=== PATIENT | female | born 1955 | race African-American/Black ===

== ENCOUNTER → 2016-04-04 | Outpatient (CLI) | payer BC ==
[~2016-04-04] MED LIST: ATOR-26 PO; BUPRTAB51 PO; LAMO200T PO; LAMO25TA PO; LSN/10125 PO; NRN/300 PO; RISP1TAB68 PO; SERT-234 PO; ZOLP12.5 PO
--- NOTE | 2016-04-04 15:06 | DIAGNOSTIC IMAGING REPORT ---
MRI OF THE LUMBAR SPINE WITHOUT CONTRAST CLINICAL HISTORY: Lumbar spinal stenosis. Lower back pain with bilateral lower extremity pain. COMPARISON STUDY: Lumbar spine MRI October 14, 2015. TECHNIQUE: Utilizing a 1.5 Camilla magnet and dedicated coil, multiplanar, multiecho imaging of the lumbar spine was performed without IV contrast. FINDINGS: For purposes of numbering on this exam, the L5-S1 disc space is assigned to axial image 23 of 25. Alignment of the lumbar spine is anatomic. Vertebral body heights are maintained. There is no marrow replacement. The conus terminates at the lower L1 level. There is a suspected 4 mm T2 hypointense abnormality within the canal at the L2 level. This is unchanged since study of October 16, 2012. Paravertebral soft tissues are unremarkable. L1-2: The central canal and neural foramen are patent. L2-3: The central canal and neural foramen are patent. There is mild facet arthrosis. L3-4: The central canal and neural from are patent. There is moderate facet arthrosis. L4-5: There is moderate to severe facet arthrosis, greater on the right. There is mild disc bulge. There is minimal narrowing of the lateral recesses and neural foramen. L5-S1: There is disc space narrowing with mild disc bulge. There is facet arthrosis. There is minimal narrowing of the central canal and lateral recesses as well as mild narrowing of both neural foramen. IMPRESSION: 1. Moderate multilevel facet arthrosis and moderate degenerative disc disease at L5-S1. No significant central canal stenosis. Minimal narrowing of the central canal at L5-S1. 2. Mild multilevel neural foraminal narrowing. No disc herniation. 3. 4 mm intradural extramedullary abnormality at the L2 level. This is stable since prior exam and is of doubtful significance. This could reflect a tiny meningioma or schwannoma. Electronically signed by: Az Nelson M.D. 04/04/2016 3:04 PM Dictated Date/Time: 04/04/2016 2:47 PM
== END | disposition home or self-care (01) ==
LOC: C.MRI 13:30
PROVIDERS: ATTEND Family Medicine
DX: G89.29 Other chronic pain (principal); M48.06 Spinal stenosis, lumbar region; M76.31 Iliotibial band syndrome, right leg; M51.37 Other intervertebral disc degeneration, lumbosacral region

== ENCOUNTER → 2016-06-05 | Day surgery (SDC) | payer BC ==
[2016-06-04 08:33] VITALS: Ht 162.6 cm; Wt 135.4 kg
[~2016-06-05] VITALS: Ht 162.6 cm; Wt 135.4 kg
[~2016-06-05] MED LIST changes: +IOPAMIDOL INJ 61% 15 ML VIAL ONE; +LIDOCAINE HCL 1% MPF 5 ML VIAL ONE; +SODIUM CHLORIDE 0.9% INJ 10 ML VIAL ONE
--- NOTE | 2016-06-05 14:26 | History & Physical Bridge - [place] ---
H&P Re-Evaluation Bridge Note: I have examined the patient, reviewed the History & Physical and in the interval since the performance of the History & Physical I have noted the following changes of clinical significance: No changes noted
[2016-06-05 14:50] VITALS: TEMP 36.5
--- NOTE | 2016-06-05 14:58 | Discharge Instructions ---
Discharge Instructions Date of Service Jun 05, 2016. Visit Reason for Visit: Lumbar Radiculopathy Discharge Discharge Diagnosis / Problem: leg pain Discharge Goals Goal(s): Decrease discomfort, Improve function Activity Recommendations Activity Limitations: resume your previous activity Anesthesia . Post Anesthesia Instructions: If you have had General Anesthesia or IV Sedation: * Do not drive today. * Resume driving when surgeon permits. * Do not make important decisions or sign legal documents today. * Call surgeon for: 1. Temperature elevations greater than 101 degrees F. 2. Uncontrollable pain. 3. Excessive bleeding. 4. Persistent nausea and vomiting. 5. Medication intolerance (nausea, vomiting or rash). * For nausea and vomiting use only clear liquids such as: tea, soda, bouillon until nausea subsides, then gradually increase diet as tolerated. * If you have any concerns or questions, call your surgeon's office. If physician is unavailable and it is an emergency, call 911 or go to the nearest emergency room. . Diet Recommendations Recommended Home Diet: resume previous diet Procedures Procedures Performed: Lumbar Epidural Steroid Injection Pending Studies Studies pending at discharge: no Medical Emergencies . Who to Call and When: Medical Emergencies: If at any time you feel your situation is an emergency, please call 911 immediately. . Non-Emergent Contact Non-Emergency issues call your: Specialist . . "Provider Documentation" section prepared by Nhan Peterson.
[2016-06-05 15:00] VITALS: BP 132/81; PULSE 84; O2SAT 95
--- NOTE | 2016-06-05 15:50 | OPERATIVE REPORT ---
DATE OF OPERATION: 06/05/2016 PREOPERATIVE DIAGNOSIS: L5-S1 lumbar disk disease with bilateral lower extremity radiculopathies. POSTOPERATIVE DIAGNOSIS: Same. PROCEDURE: Left paramedian L5-S1 epidural steroid injection under fluoroscopic guidance. INDICATIONS: The patient is a 61-year-old -[place] female, who presents today for an epidural steroid injection. She has received them in the past with some good results for extended period of time. She presents today with radicular complaints on both legs that have not responded to conservative measures. PHYSICAL EXAMINATION: GENERAL: Pleasant female seated comfortably, in no apparent distress. MUSCULOSKELETAL: She has tenderness to palpation at the L5-S1 paraspinal area. She has normal lower extremity strength. Negative seated straight leg raises. Intact sensation throughout the lower extremities. CONSENT: Verbal and written consent was obtained from the patient. Risks and benefits were reviewed. Risks include, but are not limited to epidural abscess, epidural hematoma, allergic reaction, and dural puncture. The patient wishes to proceed. DESCRIPTION OF PROCEDURE: The patient was taken back to the special procedures room of [facility]. She was maintained in a prone position. Backside was cleansed with Betadine x3 and a dry sterile dressing was applied. Fluoroscope was used to identify the L5-S1 intralaminar space. Overlying skin on the left side was anesthetized with 4 mL of lidocaine 1% with a 25-gauge 1.5-inch needle. A 20-gauge 6-inch Tuohy needle was then directed down towards the intralaminar space. It was advanced under lateral fluoroscopic guidance and loss of resistance was noted at a depth of 13 cm. Isovue-300 contrast 1 mL was injected, which demonstrated epidural uptake pattern, which was confirmed with both AP and lateral views. She then underwent injection after negative aspiration of 4 mL of preservative free sodium chloride and 40 mg of Depo-Medrol. Injection was well tolerated. She did develop some nausea immediately following the injection. DISPOSITION: 1. The patient is taken out into the discharge recovery area, where she will be discharged home once discharge criteria have been met. 2. Follow up in the [facility] office in 2-4 weeks. I attest to the content of the Intraoperative Record and any orders documented therein. Any exceptions are noted below. ADAL
== END | disposition home or self-care (01) ==
LOC: X.SURG 13:41
PROVIDERS: ATTEND Physical Medicine & Rehabilitation
DX: M51.37 Other intervertebral disc degeneration, lumbosacral region (principal); M54.16 Radiculopathy, lumbar region